=== PATIENT | female | born 1975 | race African-American/Black ===

== ENCOUNTER 2020-03-29 17:29 | Emergency (ER) | payer OTHER, SELFPAY ==
[2020-03-29 17:42] VITALS: BP 147/87; PULSE 88; RESP 16; TEMP 37.1; O2SAT 98
--- NOTE | 2020-03-29 17:45 | ED.GENADULT ---
HPI - General Adult General Chief complaint: Upper Respiratory Infection Stated complaint: sinus/wheezing Time Seen by Provider: 03/29/20 17:47 Source: patient and RN notes reviewed Mode of arrival: ambulatory Limitations: no limitations History of Present Illness HPI narrative: This is a 44 years old female presented office for evaluations of sinus congestion for the last 3 days. Associated with cough contribute to post nasal drainage, described as choking her at night. She has tried Zyrtec, Sudafed, nasal spray, and decongestion with no relief. She does not smoke. Related Data Home Medications Medication Instructions Recorded Confirmed lisinopril-hydrochlorothiazide 1 tablet PO DAILY 03/29/20 03/29/20 [Zestoretic] Allergies Allergy/AdvReac Type Severity Reaction Status Date / Time mold Allergy Unknown Unknown Verified 03/29/20 17:47 Review of Systems Review of Systems: Narrative: CONSTITUTIONAL: Denies fever or feeling ill ENT: Denies otalgia. CARDIOVASCULAR: Denies chest pain RESPIRATORY: Denies dyspnea. Reports choking cough with wheezing GASTROINTESTINAL: Denies abdominal pain,vomiting. Reports nausea contribute to post nasal drips. SKIN: Denies rash MUSCULOSKELETAL: Denies acute back pain NEUROLOGIC: Denies lightheaded PMFSH Past Medical History Medical History (Updated 03/29/20 @ 18:03 by VALENTINA Che) History of asthma as a child HTN (hypertension) Seasonal allergies Surgical History Surgical History H/O section History of nephrectomy, right donate to her mother Social History Social History (Updated 03/29/20 @ 17:47 by VALENTINA Che) Smoking status: Never smoker Gender identity (if verbalized by the patient): Female Comments At time of signature, I agree with nursing past medical, surgical, social and family history. There is no relevant family history pertinent to the presenting complaint. Exam Narrative: Exam Narrative: GENERAL: This is a well-nourished, well-developed patient, in no apparent distress. EARS: External ears normal, auditory canals clear and without drainage, TMs normal without perforation. Hearing grossly intact. NOSE: External nose normal with no obvious nasal discharge, nares without redness, no rhinorrhea. THROAT: Mucous membranes moist, posterior pharynx erythema with drainage. NECK: Neck supple, non-tender without lymphadenopathy, masses or thyromegaly. CARDIOVASCULAR: Regular rate and rhythm without murmurs, gallops, or rubs. RESPIRATORY: Clear to auscultation. Breath sounds equal bilaterally. No wheezes, rales, or rhonchi. GASTROINTESTINAL: Abdomen soft, non-tender, nondistended. Bowel sounds are active. No guarding. NEURO: awake, alert, and oriented to person, place and time. There were no obvious focal neurologic abnormalities. Steady gait Charity Coma Scale Eye Opening: Spontaneous 4 Charity Coma Scale Motor: Obeys Commands 6 [place] Coma Scale Verbal: Oriented 5 Course Vital Signs Vital signs: Vital Signs Temperature 98.8 F 03/29/20 17:42 Pulse Rate 88 03/29/20 17:42 Respiratory Rate 16 03/29/20 17:42 Blood Pressure 147/87 H 03/29/20 17:42 Pulse Oximetry 98 03/29/20 17:42 Temperature 98.8 F 03/29/20 17:42 Pulse Rate 88 03/29/20 17:42 Respiratory Rate 16 03/29/20 17:42 Blood Pressure 147/87 H 03/29/20 17:42 Pulse Oximetry 98 03/29/20 17:42 Medical Decision Making MDM Narrative Medical decision making narrative: Elevated BP noted: I recommend the patient call the primary care provider this week to arrange follow-up for further evaluation of her hypertension within 1-2week. Discharge instructions reviewed with patient, as well as provided in writing per nursing staff. The instructions also include specific and strict return/GO TO THE ER as well as f/u information. All questions have been answered, and the patient de
== END 2020-03-29 18:09 | disposition home or self-care (01) ==
PROVIDERS: Emergency Provider Nurse Practitioner; PCP Internal Medicine
DX: J45.909 Unspecified asthma, uncomplicated (principal); I10 Essential (primary) hypertension; Z90.5 Acquired absence of kidney
CPT/HCPCS: 99213; G0463

== ENCOUNTER 2021-03-30 17:40 | Emergency (ER) | payer OTHER, SELFPAY ==
[2021-03-30 17:52] VITALS: BP 123/80; PULSE 88; RESP 16; TEMP 36.8; O2SAT 99
--- NOTE | 2021-03-30 18:43 | ED.GENADULT ---
HPI - General Adult General Chief complaint: Unspecified Stated complaint: hest pain Time Seen by Provider: 03/30/21 18:31 Source: patient and RN notes reviewed Mode of arrival: ambulatory Limitations: no limitations History of Present Illness HPI narrative: Patient presents today complaining of chest wall pain to the left chest since yesterday morning. Patient believes she pulled a muscle in her upper chest. 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 Pain increases when she leans forward or with movement of her left arm and shoulder. Denies shortness of breath, nausea or vomiting, sweats or chills, abdominal pain. Her coworkers were concerned about her and told her to take some 81 mg aspirin yesterday. She also took 500 mg of Tylenol which did help temporarily. She came in for evaluation due to the concern of her coworkers that she may be having a heart attack. Patient has 1 kidney as she donated her right kidney to her mother a few years ago. MD complaint: Left chest wall pain Related Data Home Medications Medication Instructions Recorded Confirmed lisinopril-hydrochlorothiazide 1 tablet PO DAILY 03/29/20 03/29/20 [Zestoretic] Allergies Allergy/AdvReac Type Severity Reaction Status Date / Time mold Allergy Unknown Unknown Verified 03/29/20 17:47 Review of Systems Review of Systems: Narrative: CONSTITUTIONAL: Denies body aches, fever, chills, or sweats. EYES: Denies visual changes, redness, or discharge. ENT: Denies rhinorrhea, congestion, sore throat, or otalgia. CARDIOVASCULAR: Denies chest pain, palpitations, or edema. RESPIRATORY: Denies cough or dyspnea. GASTROINTESTINAL: Denies abdominal pain, nausea, vomiting, or diarrhea. GENITOURINARY: Denies dysuria or hematuria. SKIN: Denies rash, itching, or wounds. MUSCULOSKELETAL: Denies back pain, joint pain. + Left chest wall pain NEUROLOGIC: Denies headache, numbness, tingling, or weakness. PSYCH: Denies depression or anxiety. [facility] Past Medical History Medical History (Updated 03/31/21 @ 00:00 by Sue Johnson) History of asthma as a child HTN (hypertension) Seasonal allergies Surgical History Surgical History H/O section History of nephrectomy, right donate to her mother Social History Social History (Updated 03/29/20 @ 17:47 by VALENTINA Che) Smoking status: Never smoker Gender identity (if verbalized by the patient): Female Comments At time of signature, I have reviewed and agree with nursing past medical, surgical, social and family history unless otherwise noted. Please see nursing chart for further information. There is no relevant family history pertinent to the presenting complaint Exam Narrative: Exam Narrative: GENERAL: Well-appearing, well-nourished, and in no acute distress. HEAD: Normocephalic, atraumatic. EYES: EOMI. No redness or drainage. Conjunctivae normal. ENT: Mucous membranes pink and moist. NECK: Normal AROM. CHEST: No respiratory distress. Clear to auscultation. HEART: Regular rate and rhythm. No murmur appreciated. Normal peripheral pulses. MUSCULOSKELETAL: No bony tenderness of the spine. EXTREMITIES: Pain in the chest is reproduced with internal rotation and abduction to 90 degrees laterally of the left arm/shoulder. Chest is nontender to palpation. No edema. Distal sensation intact. Capillary refill normal. Radial pulse normal. SKIN: Warm, dry, no rash. Capillary refill normal. Normal skin turgor. NEURO: No focal deficits. Alert and oriented x3. Gait steady. PSYCH: Normal affect. No signs of depression or anxiety. Course Vital Signs Vital signs: Vital Signs Temperature 98.3 F 03/30/21 17:52 Pulse Rate 88 03/30/21 17:52 Respiratory Rate 16 03/30/21 17:52 Blood Pressure 123/80 03/30/21 17:52 Pulse Oximetry 99 03/30/21 17:52 Temperature 9
== END 2021-03-30 18:45 | disposition home or self-care (01) ==
PROVIDERS: Emergency Provider Nurse Practitioner
DX: S29.011A Strain of muscle and tendon of front wall of thorax, initial encounter (principal); I10 Essential (primary) hypertension; J45.909 Unspecified asthma, uncomplicated; Z90.5 Acquired absence of kidney; X50.9XXA Other and unspecified overexertion or strenuous movements or postures, initial encounter
CPT/HCPCS: 99211; G0463